=== PATIENT | female | born 1970 | race Caucasian/White ===

== ENCOUNTER 2016-12-12 09:00 | Day surgery (SDC) | payer OTHER ==
[~2016-12-12] VITALS: Ht 167.6 cm; Wt 120.9 kg
[~2016-12-12 09:00] MED LIST: AMLODIPINE BESY10 MG PO; ERGOCALCIF50000 UNIT PO; FLEXERIL10 MG PO; HYDROCHLOROTHIA25 MG PO; HYDROCODON-ACE1 EAC7 PO; K-DUR20 MEQ PO; KEFLEX500 MG PO; LISINOPRIL10 MG PO; MACROBID100 MG PO; PAXIL40 MG PO; TORADOL10 MG PO; ULTRAM50 MG PO; VICODIN,LORT1 TABLET PO; ZITHROMAX Z-PA250 MG PO; ZOFRAN4 MG PO
[2016-12-12 10:02] VITALS: BP 127/78
[2016-12-12 13:57] VITALS: BP 100/60
[2016-12-12 14:46] VITALS: BP 126/69
[2016-12-12 16:48] VITALS: BP 113/60
== END 2016-12-12 17:09 | disposition home or self-care (01) ==
LOC: SDC 09:00
PROC: 0UDB8ZX Extraction of Endometrium, Via Natural or Artificial Opening Endoscopic, Diagnostic (ICD-10-PCS; principal; 2016-12-12)
DX: N93.9 Abnormal uterine and vaginal bleeding, unspecified (principal); N84.0 Polyp of corpus uteri; N85.01 Benign endometrial hyperplasia; F17.200 Nicotine dependence, unspecified, uncomplicated; J45.909 Unspecified asthma, uncomplicated; I10 Essential (primary) hypertension; E66.01 Morbid (severe) obesity due to excess calories; Z68.41 Body mass index [BMI] 40.0-44.9, adult; E78.5 Hyperlipidemia, unspecified
CPT/HCPCS: 88305; 93005; J1100; J1885; J2250; J3010